=== PATIENT | male | born 1955 | race Caucasian/White ===

== ENCOUNTER 2016-11-14 18:30 | Emergency (ER) | payer OTHER ==
[2016-11-14 18:57] VITALS: TEMP 98.1; BMI 19.1
--- NOTE | 2016-11-14 19:58 | PDOC ---
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 The patient states that he was bitten by one of his cats approximately 24 hours prior to presentation to the ED. Since then, the patient has noticed increasing swelling , warmth and redness to the right hand. Given his cardiac history, the patient came to the ED for further evaluation. The patient states the cat is up to date with its vaccinations. The patient denies fever or chills. The patient denies any other injury or trauma. Date of last Tetanus is unknown. Allergies: None reported. Past Surgical History: Heart Valve Replacements (2012, 2013). Social History: Former smoker (quit 2 years ago). Reported past IV drug use (4 years ago). PCP: Dr. Ulysses Scott Hat Designer: Dr. Niranjan Sims <Tammy Odell - Last Filed: 11/14/16 23:03> <Franklyn Roberts - Last Filed: 11/14/16 23:57> - General Chief Complaint: Wound Infection Stated Complaint: BITE-CAT/infection Past History <Tammy Odell - Last Filed: 11/14/16 23:03> - Past Medical History Anemia: Yes Asthma: No Cancer: No Cardiac Disorders: Yes (ENDOCARDITIS) CVA: No COPD: No CHF: No Dementia: No Diabetes: No GI Disorders: No Disorders: No HTN: No Hypercholesterolemia: No Liver Disease: No Seizures: No Thyroid Disease: No - Surgical History Abdominal Surgery: No Appendectomy: No Cardiac Surgery: Yes (HEART VALVES REPLACEMENT) Cholecystectomy: No Lung Surgery: No Neurologic Surgery: No Orthopedic Surgery: No - Psycho/Social/Smoking Cessation Hx Anxiety: No Suicidal Ideation: No Smoking Status: Yes Smoking History: Never smoked Have you smoked in the past 12 months: No Number of Cigarettes Smoked Daily: 0 If you are a former smoker, when did you quit?: 2YRS AGO Information on smoking cessation initiated: No Hx Alcohol Use: No Drug/Substance Use Hx: No Substance Use Type: None Hx Substance Use Treatment: Yes (METHADONE) <Franklyn Roberts - Last Filed: 11/14/16 23:57> - Past Medical History Allergies/Adverse Reactions: Allergies Allergy/AdvReac Type Severity Reaction Status Date / Time No Known Allergies Allergy Verified 11/14/16 18:57 Home Medications: Ambulatory Orders Aspirin 325 mg PO DAILY 02/06/13 Review of Systems - Review of Systems Able to Perform ROS?: Yes Comments:: 11/14/16 21:19 GENERAL/CONSTITUTIONAL: No fever or chills. No weakness. HEAD, EYES, EARS, NOSE AND THROAT: No change in vision. No ear pain or discharge. No sore throat. CARDIOVASCULAR: No chest pain or shortness of breath. RESPIRATORY: No cough, wheezing, or hemoptysis. GASTROINTESTINAL: No nausea, vomiting, diarrhea or constipation. GENITOURINARY: No dysuria, frequency, or change in urination. MUSCULOSKELETAL: No joint or muscle swelling or pain. No neck or back pain. SKIN: +Swelling and redness to the right hand. NEUROLOGIC: No headache, vertigo, loss of consciousness, or change in strength/ sensation. ENDOCRINE: No increased thirst. No abnormal weight change. HEMATOLOGIC/LYMPHATIC: No anemia, easy bleeding, or history of blood clots. ALLERGIC/IMMUNOLOGIC: No hives or skin allergy. <Tammy Odell - Last Filed: 11/14/16 23:03> *Physical Exam - Vital Signs Last Vital Signs Temp Pulse Resp BP Pulse Ox 98.1 F 74 19 87/49 97 11/14/16 18:53 11/14/16 18:53 11/14/16 18:53 11/14/16 18:53 11/14/16 18:53 - Physical Exam Comments: 11/14/16 21:18 GENERAL: Awake, alert, and fully oriented, in no acute distress. HEAD: No signs of trauma. EYES: PERRLA, EOMI, sclera anicteric, conjunctiva clear. ENT: Auricles normal inspection, hearing grossly normal, nares patent, oropharynx clear without exudates. Moist mucosa. NECK: Normal ROM, supple, no lymphadenopathy, JVD, or masses. LUNGS: Breath sounds equal, clear to auscultation bilaterally. No wheezes, and no crackles. HEART: Regular rate and rhythm, normal S1 and S2, no murmurs, rubs or gallops. ABDOMEN: Soft, nontender, normoactive bowel sounds. No guarding, no rebound. No masses. EXTREMITIES: Normal range of motion, no edema. No clubbing or cyanosis. No cords, erythema, or tenderness. NEUROLOGICAL: Cranial nerves II through XII intact. Normal speech, normal gait. SKIN: Right hand, there is soft tissue swelling with warmth and redness which extends up the dorsum of hand from the MCP joint past the wrist following the extensor tendons. <Tammy Odell - Last Filed: 11/14/16 23:03> - Vital Signs Last Vital Signs Temp Pulse Resp BP Pulse Ox 98.1 F 74 19 87/49 97 11/14/16 18:53 11/14/16 18:53 11/14/16 18:53 11/14/16 18:53 11/14/16 18:53 <Franklyn Roberts - Last Filed: 11/14/16 23:57> ED Treatment Course - LABORATORY CBC & Chemistry Diagram: 11/14/16 20:45 11/14/16 20:45 <Tammy Odell - Last Filed: 11/14/16 23:03> - LABORATORY CBC & Chemistry Diagram: 11/14/16 20:45 11/14/16 20:45 <Franklyn Roberts - Last Filed: 11/14/16 23:57> Medical Decision Making - Medical Decision Making 11/14/16 20:38 EXAM: RAD/HAND - RIGHT Reviewed By: Dr. Vilma Varma IMPRESSION: The alignment is satisfactory without evidence of a fracture or dislocation. No gross radiopaque foreign body, soft tissue swelling is identified. After informing the patient that he will most likely need to be admitted to the hospital for IV antibiotics especially given his substantial cardiac history, the patient is adamantly refusing to be admitted because he states that he needs to make work arrangements in addition to arrangements for the care of his 17 cats. Upon explaining to the patient how important it is that he gets appropriate treatment and care, the patient states that he will make some phone calls. Upon checking in with the patient, he states that he has just spoken with both his sister and his tissue packer (Dr. Niranjan Sims - [facility] ). The patient reports that he is willing to stay in the ED to at least receive the first doses of IV antibiotics but he intends to sign out AMA and is refusing to be admitted to the hospital. He reports that he will go home and make arrangements with his sister regarding the care of his cats and that he will follow-up with his tissue packer first thing tomorrow morning to be admitted at [facility] for treatment there. <Tammy Odell - Last Filed: 11/14/16 23:03> *DC/Admit/Observation/Transfer - Attestations Scribe Attestion: 11/14/16 20:13 Documentation prepared by Tammy Odell, acting as medical physics professor for Franklyn Roberts MD/. <Tammy Odell - Last Filed: 11/14/16 23:03> - Discharge Dispostion Admit: No - Attestations Physician Attestion: 11/14/16 19:57 I, Dr. Franklyn Roberts, attest that this document has been prepared under my direction and personally reviewed by me in its entirety. I further attest, that it accurately reflects all work, treatment, procedures and medical decision -making performed by me. <Franklyn Roberts - Last Filed: 11/14/16 23:57> Diagnosis at time of Disposition: Status post coronary artery bypass graft, History of valvuloplasty, History of bacterial endocarditis Cat bite of right hand Qualifiers: Encounter type: initial encounter Qualified Code(s): S61.451A - Open bite of right hand, initial encounter; W55.01XA - Bitten by cat, initial encounter - Discharge Dispostion Disposition: AGAINST MEDICAL ADVICE Condition at time of disposition: Unchanged/Unknown - Referrals Referrals: Ulysses Scott MD [Primary Care Provider] - - Patient Instructions Printed Discharge Instructions: DI for Cat Bite Additional Instructions: José- This cat bite could be devistating to your health and wellbeing. You are at risk for heart valve infection because of your previous surgeries and sometimes these bites have to go to the operating room to be washed out. You need to see several specialists, an orthopedic doctor, and infectious disease doctor and a tissue packer and you probably need to be in the hospital for at least a day or two. Please return to us or go to the hospital where your tissue packer is to get admitted so that you can get the care that you need. Best- Dr. Franklyn Roberts - Post Discharge Activity Work/School Note: Back to Work
[2016-11-14] MEDS ORDERED: DIPHTH,PERTUSS(ACELL),TET VAC 0.5 ML VIAL IM ONE (20:25)
[2016-11-14] MEDS ORDERED: AMPICILLIN NA/SULBACTAM NA 3 GM in SODIUM CHLORIDE 100 ML IVPB ONE (20:25)
[2016-11-14] MEDS ORDERED: VANCOMYCIN 1,000 MG in DEXTROSE 5%-WATER - 250 ML IVPB ONE (20:25)
[2016-11-14] MEDS ORDERED: VANCOMYCIN 1 GRAM (PRE-DOCKED) 250 ML IVPB ONE (20:37)
[2016-11-14 21:13] LABS: BASOPHIL 0.6 % (0-2.0); EOSINOPHIL 0.5 % (0-4.5); MCH 30.9 pg (25.7-33.7); MCHC 33.5 g/dl (32.0-35.9); MEAN CELL VOLUME 92.3 fl (80-96); MEAN PLT VOLUME 8.9 fl (7.5-11.1); NEUTROPHILS 70.5 % (42.8-82.8); PLATELET COUNT 137 K/MM3 (134-434); RDW 13.5 % (11.9-15.9); WHITE BLOOD COUNT 9.9 K/mm3 (4.0-10.0)
[2016-11-14 21:25] LABS: INR 1.03 (0.82-1.09); PROTHROMBIN TIME (PATIENT) 11.3 SEC (9.98-11.88)
[2016-11-14 21:36] LABS: ALBUMIN 4.2 g/dl (3.4-5.0); CALCIUM 8.7 mg/dL (8.5-10.1); COCKROFT - GAULT 34.79; CREATININE 2.1 mg/dL (0.7-1.3)
[2016-11-14 21:38] LABS: BILIRUBIN,TOTAL 0.5 mg/dL (0.2-1.0); TOT PROT 8.7 g/dl (6.4-8.2)
[2016-11-15 01:03] LABS: URINE APPEARANCE CLEAR; URINE BILIRUBIN NEGATIVE (NEGATIVE); URINE BLOOD NEGATIVE (NEGATIVE); URINE COLOR STRAW; URINE GLUCOSE (UA) NEGATIVE (NEGATIVE); URINE KETONE NEGATIVE (NEGATIVE); URINE LEUK ESTERASE NEGATIVE (NEGATIVE); URINE NITRITE NEGATIVE (NEGATIVE); URINE PROTEIN NEGATIVE (NEGATIVE); URINE UROBILINOGEN NEGATIVE E.U./dl (0.2-1.0)
[2016-11-15 01:33] VITALS: BP 112/68; PULSE 79
== END 2016-11-15 01:34 | disposition left against medical advice (07) ==
LOC: JER 18:30
DX: S61.451A Open bite of right hand, initial encounter (principal); W55.01XA Bitten by cat, initial encounter; Y93.K9 Activity, other involving animal care; Y92.038 Other place in apartment as the place of occurrence of the external cause; Z95.4 Presence of other heart-valve replacement; Z95.1 Presence of aortocoronary bypass graft
CPT/HCPCS: 36415; 73130-TC-RT; 80053; 81003; 85025; 85610; 87040; 96365; 96367; 99282-25